=== PATIENT | female | born 1965 | race Asian ===

== ENCOUNTER 2016-12-29 20:59 | Inpatient (IN) | payer OTHER ==
[~2016-12-29] VITALS: Ht 157.5 cm; Wt 62.3 kg
[2016-12-29 21:34] LABS: POINT-OF-CARE METER ID UU13113778
[2016-12-29 22:28] LABS: HEMATOCRIT 39.2 % (36.0-46.0); MCH 27.8 PG (29.0-34.0); MCHC 35.2 G/DL (30.0-36.0); MCV 78.9 FL (83-99); MEAN PLAT.VOLUME 9.9 uM^3 (9.5-12.4); PLATELET COUNT 238 K/uL (156-360); RBC DIS.WIDTH-CV 12.3 % (11.8-14.6); RBC DIS.WIDTH-SD 34.5 % (39-53); RED BLOOD COUNT 4.97 M/uL (3.80-5.20); WHITE BLOOD COUNT 7.3 K/uL (4.1-10.2)
[2016-12-29 22:35] LABS: CHLORIDE 102 mEq/L (99-109); POTASSIUM 3.7 mEq/L (3.7-5.4); SODIUM 137 mEq/L (136-147)
[2016-12-29 22:36] LABS: ADD MIUA? YES; BILIRUBIN NEGATIVE; BLOOD SMALL; GLUCOSE (STRIP) >=500; KETONES NEGATIVE; LEUKOCYTES NEGATIVE; PROTEIN (STRIP) NEGATIVE; SPECIFIC GRAVITY 1.031 (1.000-1.030)
[2016-12-29 22:37] LABS: GLUCOSE 349 mg/dL (70-99)
[2016-12-29 22:39] LABS: ANION GAP 10 MEQ/L (2-14); TOTAL BILIRUBIN 1.6 mg/dL (0.0-1.0)
[2016-12-29 22:40] LABS: BACTERIA NONE SEEN /HPF; COLOR AMBER ((YELLOW)); EPITHELIAL CELLS RARE /HPF; MUCUS TRACE /LPF; NITRITE POSITIVE; RED BLOOD CELLS 0-5 /HPF (0-5); UCUL ADDED? NO; WHITE BLOOD CELLS 0-5 /HPF (0-5)
[2016-12-29 22:41] LABS: ALKALINE PHOSPHATASE 94 IU/L (3-129)
[2016-12-29 22:42] LABS: UREA NITROGEN (BUN) 7 mg/dL (9-23)
[2016-12-29 22:46] LABS: LIPASE 13 U/L (1.0-51.0)
[2016-12-29 22:50] LABS: QUANTITATIVE HCG < 4.0 MIU/ML
[2016-12-29 22:52] LABS: TROP-I INTERPRETATION NEGATIVE; TROPONIN-I < 0.01 ng/mL (0.0-0.30)
[2016-12-29 22:56] LABS: GFR ESTIMATE (CALCULATED) > 59 mL/min/
[2016-12-30 00:33] LABS: CARBON DIOXIDE (BICARBONATE) 28.1 MEQ/L (20-31)
[2016-12-30] MEDS ORDERED: CIPRO500 MG PO ×2 (00:46→09:53)
[2016-12-30] MEDS ORDERED: AZO URINARY P97.5 MG PO (00:47)
[2016-12-30 05:07] VITALS: BP 146/97
[2016-12-30 06:48] LABS: Estimated Average Glucose 260 mg/dL (70-123); HEMOGLOBIN A1c (GLYCOHEMOGLOB) 10.7 % HGB (Below 5.7)
[2016-12-30 08:13] VITALS: BP 158/97
[2016-12-30] MEDS ORDERED: GLIPIZIDE5 MG PO (09:53)
[2016-12-30] MEDS ORDERED: METFORMIN HCL500 MG PO (09:53)
[2016-12-30] MEDS ORDERED: LISINOPRIL20 MG PO (09:53)
[2016-12-30 11:51] VITALS: BP 130/87
== END 2016-12-30 13:15 | disposition home or self-care (01) | DRG 690 ==
LOC: EME 20:59 → EDOF 12-30 01:49 → 3EAST 12-30 04:50
PROVIDERS: Emergency Medicine; Internal Medicine
DX: N12 Tubulo-interstitial nephritis, not specified as acute or chronic (principal); E11.65 Type 2 diabetes mellitus with hyperglycemia; I10 Essential (primary) hypertension; J45.909 Unspecified asthma, uncomplicated; N30.91 Cystitis, unspecified with hematuria; Z87.442 Personal history of urinary calculi
CPT/HCPCS: 80053; 81003; 82010; 82803; 82948; 83036; 83690; 84484; 84702; 85027; 87086; 93005; 99281; 99285; J0692; J0696; J1650; J1815; J7030; J7050